=== PATIENT | male | born 1980 | race Caucasian/White ===

== ENCOUNTER 2018-07-30 13:08 | Emergency (ER) | payer OTHER ==
[~2018-07-30] VITALS: Ht 175.3 cm; Wt 72.1 kg
[2018-07-30 13:34] VITALS: Ht 175.3 cm; Wt 72.1 kg
[2018-07-30 14:07] LABS: microscopic required? NO
[2018-07-30 14:32] LABS: UA SPECIFIC GRAVITY >=1.030 (1.005-1.035); urine erythrocyte NEGATIVE (NEGATIVE)
[2018-07-30 14:56] LABS: BASOPHIL % 0.5 % (0-2); CALCIUM 8.7 mg/dL (8.5-10.1); CARBON DIOXIDE 32.3 mmol/L (21-32); CHLORIDE SERUM 102 mmol/L (98-107); CREATININE SERUM 1.1 mg/dL (0.7-1.3); GFR1 > 60 mL/min; GLUCOSE SERUM 101 mg/dL (74-106); PLATELET COUNT 250 x10^3mcL (130-400); POTASSIUM SERUM 4.4 mmol/L (3.5-5.1); RED CELL DISTRIBUTION WIDTH 13.2 % (11.5-14.5); SODIUM SERUM 139 mmol/L (136-145)
[2018-07-30 15:01] LABS: ALBUMIN 3.5 g/dL (3.4-5.0); ALKALINE PHOSPHATASE 49 U/L (46-116); ALT/SGPT 72 U/L (16-63); AST/SGOT 39 U/L (15-37); BILIRUBIN TOTAL 0.29 mg/dL (0.20-1.00); TOTAL PROTEIN, SERUM 7.1 g/dL (6.4-8.2)
[2018-07-30 16:38] VITALS: BP 109/70
== END 2018-07-30 13:34 | disposition home or self-care (01) ==
LOC: ED 13:08
PROVIDERS: Emergency Medicine
DX: R10.32 Left lower quadrant pain (principal); K59.00 Constipation, unspecified; H54.7 Unspecified visual loss; Q15.0 Congenital glaucoma; Z98.890 Other specified postprocedural states; R30.0 Dysuria
CPT/HCPCS: 87491; 87591; J1885; J2405

== ENCOUNTER 2019-12-15 13:51 | Emergency (ER) | payer OTHER | END 2019-12-15 15:28 | disposition other institution (70) | LOC: ED 13:51 | DX: Z02.89 Encounter for other administrative examinations (principal) ==

== ENCOUNTER 2019-12-15 13:51 | Emergency (ER) | payer OTHER ==
[~2019-12-15] VITALS: Ht 175.3 cm; Wt 81.6 kg
[2019-12-15 13:55] VITALS: Ht 175.3 cm; Wt 81.6 kg
[2019-12-15 15:20] VITALS: BP 126/98
== END 2019-12-15 15:28 | disposition other institution (70) ==
LOC: ED 13:51
DX: I10 Essential (primary) hypertension (principal); F19.10 Other psychoactive substance abuse, uncomplicated